=== PATIENT | male | born 1960 | race Caucasian/White ===

== ENCOUNTER 2022-04-05 17:15 | Emergency (ER) | payer OTHER, SELFPAY ==
[2022-04-05 17:16] VITALS: BP 128/87; PULSE 95; RESP 16; TEMP 36.6; O2SAT 97; BMI 27.6
--- NOTE | 2022-04-05 17:26 | RAD_ITS ---
STUDY: XR Hand Min 3 Views REASON FOR EXAM: Male, 62 years old. INJURY TECHNIQUE: XR Hand Min 3 Views RIGHT COMPARISON: None. FINDINGS: Normal radiocarpal articulation. Normal distal radioulnar joint. Normal visualized carpal bones. Normal carpal articulations Normal carpometacarpal articulation of the thumb. Normal second through fifth carpometacarpal joints. Fracture of the base of the 1st metacarpal bone. Normal metacarpophalangeal joint of the thumb. Normal interphalangeal joint of the thumb. Normal proximal and distal phalanges of the thumb. Normal metacarpophalangeal joints of the second through fifth fingers. Normal proximal and distal interphalangeal joints of the second through fifth fingers. Normal phalanges of the second through fifth fingers. Swelling around hand. RAD/Hand Min 3 Views IMPRESSION: Fracture of the base of the 1st metacarpal bone. Electronically Signed: Lauri Antunez MD at 17:38 EST ,
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
== END 2022-04-05 21:47 | disposition home or self-care (01) ==
PROVIDERS: Emergency Provider Emergency Medicine; PCP Family Medicine; Visit Provider Emergency Medicine
DX: S62.231A Other displaced fracture of base of first metacarpal bone, right hand, initial encounter for closed fracture (principal); V18.0XXA Pedal cycle driver injured in noncollision transport accident in nontraffic accident, initial encounter; Y93.55 Activity, bike riding; Y99.8 Other external cause status
CPT/HCPCS: 29130; 73130; 99282

== ENCOUNTER 2022-09-05 09:21 | Emergency (ER) | payer OTHER, SELFPAY ==
[2022-09-05] VITALS (24 sets, daily range): BP systolic 86–129; BP diastolic 59–79; PULSE 64–105; RESP 14–23; TEMP 36.7–37.2; O2SAT 90–97; BMI 27.6
--- NOTE | 2022-09-05 09:30 | NURSING ---
NO OLD EKGS
--- NOTE | 2022-09-05 09:42 | EKG12_ITS ---
Test Reason : SYNCOPE Blood Pressure : / mmHG Vent. Rate : 079 BPM Atrial Rate : 079 BPM P-R Int : 166 ms QRS Dur : 104 ms QT Int : 380 ms P-R-T Axes : 067 -71 029 degrees QTc Int : 435 ms Normal sinus rhythm Incomplete right bundle branch block Left anterior fascicular block Abnormal ECG Confirmed by BRIGID FELIX, THAI ([id number]), index editor PETER ARELLANO ([id number]) on 09/09/2022 1:03:39 PM Referred By: GITA/MARCUS Confirmed By:RUFINO RAINEY MD
[2022-09-05] MEDS: MethylPREDNISolone 125 MG/2 ML Vial IV (09:58)
[2022-09-05] MEDS: 0.9% Normal Saline 1,000 ML 1000 ML IV (09:59)
[2022-09-05] MEDS: Famotidine 200 MG/20 ML MDV 20 MG in 0.9% Normal Saline (Pres. free 8 ML 300 MG IV (09:59)
[2022-09-05 10:00] LABS: Absolute Lymphocyte Count 0.87 X10^3/uL (0.83-4.51); Absolute Neutrophil Count 9.6 X10^3/uL (2.0-7.7); Basophil# 0.02 X10^3/uL; Basophil% 0.2 % (0-1); Eosinophil# 0.01 X10^3/uL; Eosinophils% 0.1 % (0-5); Hematocrit 47.5 % (40-54); Lymphocyte # 0.87 X10^3/ul (0.83-4.51); Lymphocyte % 7.9 % (19-41); Mean Corp Hgb Conc 33.7 g/dL (32-36); Mean Corpuscular Hgb 28.4 pg (27.0-32.0); Mean Corpuscular Volume 84.2 fL (80-94); Mean Platelet Vol. 10.3 fl (6.2-12.0); Monocyte# 0.47 X10^3/uL; Monocyte% 4.3 % (0-10); NRBC Flagged by Analyzer 0 % (0-5); Neutrophil # 9.57 X10^3/uL (2.7-7.7); Neutrophil % 87.1 % (47-70); Platelet Count 312 K/mm3 (150-450); RBC Distribution Width CV 13.9 % (11.6-14.6); RBC Distribution Width SD 43.2 fl (35.1-43.9); Red Blood Count 5.64 M/mm3 (4.6-6.2)
[2022-09-05 10:14] LABS: Anion Gap 8 (5-15); BUN 21 mg/dL (7-18); BUN/Creat Ratio 22.8 RATIO (10-20); Calcium,Total 8.5 mg/dL (8.5-10.1); Chloride 102 mmol/L (98-107); Creatinine, Serum 0.92 mg/dL (0.70-1.30); EST Glomerular Filtration Rate 89 mL/min (>60); Est Glom Filt Rate - Afr Amer 107 mL/min (>60); Estimated Creatinine Clearance 75.13 ml/min; Glucose 143 mg/dL (74-106); Potassium 4.2 mmol/L (3.5-5.1); Sodium Level 135 mmol/L (136-145)
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
[2022-09-05 14:02] LABS: AST(SGOT) 24 U/L (15-37); Alanine Aminotransfer ALT/SGPT 19 U/L (16-61); Alkaline Phosphatase 69 U/L (45-117); Bilirubin, Direct 0.31 mg/dL (0.00-0.30); Globulin 3.6 g/dL (2.2-4.2); Protein, Total 6.6 g/dL (6.4-8.2)
[2022-09-05 14:06] LABS: Troponin-I HS 5 pg/mL (3.0-78.0)
[2022-09-05] MEDS: 0.9% Normal Saline 1,000 ML 999 ML IV (14:06)
[2022-09-05] MEDS: predniSONE 20 MG Tablet 60 MG PO (16:54)
== END 2022-09-05 16:57 | disposition home or self-care (01) ==
PROVIDERS: Emergency Provider Emergency Medicine; PCP Family Medicine; Visit Provider Emergency Medicine
DX: R55 Syncope and collapse (principal); L50.9 Urticaria, unspecified; E86.0 Dehydration
CPT/HCPCS: 80048; 80076; 84484; 85025; 93005; 96361; 96365; 96375; 99285; J7030; A4216; J3490